=== PATIENT | male | born 1995 | race Caucasian/White ===

== ENCOUNTER 2019-01-10 11:18 | Emergency (ER) | payer OTHER ==
[~2019-01-10] VITALS: Ht 180.3 cm; Wt 70.8 kg
== END 2019-01-10 16:25 | disposition home or self-care (01) ==
LOC: ER 11:18
DX: S83.8X1A Sprain of other specified parts of right knee, initial encounter (principal); S83.8X2A Sprain of other specified parts of left knee, initial encounter; S86.012A Strain of left Achilles tendon, initial encounter; M25.562 Pain in left knee; M25.561 Pain in right knee; X58.XXXA Exposure to other specified factors, initial encounter; Y93.B9 Activity, other involving muscle strengthening exercises; Y92.89 Other specified places as the place of occurrence of the external cause; Y99.8 Other external cause status

== ENCOUNTER 2019-04-07 08:27 | Emergency (ER) | payer OTHER ==
[~2019-04-07] VITALS: Ht 180.3 cm; Wt 72.6 kg
[2019-04-07] MEDS ORDERED: NAPROXEN500 M1 (09:02)
== END 2019-04-07 12:29 | disposition home or self-care (01) ==
LOC: ER 08:27
DX: J11.1 Influenza due to unidentified influenza virus with other respiratory manifestations (principal)

== ENCOUNTER 2019-08-04 09:22 | Outpatient (CLI) | payer OTHER ==
[~2019-08-04 09:22] MED LIST: NAPROXEN500 M1
== END 2019-08-04 09:26 | disposition home or self-care (01) ==
LOC: MRI 09:22
DX: M72.2 Plantar fascial fibromatosis (principal)
CPT/HCPCS: 73718